=== PATIENT | female | born 1960 | race Caucasian/White ===

== ENCOUNTER → 2018-09-28 16:33 | Outpatient (CLI) | payer OTHER | END | disposition home or self-care (01) | LOC: D.MAMMO 11:30 | PROVIDERS: ATTEND Family Medicine | DX: Z12.31 Encounter for screening mammogram for malignant neoplasm of breast (principal) ==

== ENCOUNTER → 2019-09-22 10:15 | Outpatient (CLI) | payer OTHER | END | disposition home or self-care (01) | LOC: D.MAMMO 08-29 10:00 | PROVIDERS: ATTEND Clinical Nurse Specialist Family Health | DX: N63.22 Unspecified lump in the left breast, upper inner quadrant (principal) ==

== ENCOUNTER → 2019-10-02 08:22 | Outpatient (CLI) | payer OTHER | END | disposition home or self-care (01) | LOC: D.US 08:22 | PROVIDERS: ATTEND Clinical Nurse Specialist Family Health | DX: N63.22 Unspecified lump in the left breast, upper inner quadrant (principal) ==

== ENCOUNTER 2019-10-12 05:53 | Day surgery (SDC) | payer OTHER ==
[2019-10-09 12:42] LABS: BASOPHILS 0.4 % (0-2); EOSINOPHILS 0.9 % (0-7); HEMATOCRIT 41.6 % (36.0-48.0); IMMATURE GRANULOCYTES 0.2 % (0-5); LYMPHOCYTES 27.7 % (15-50); MCH 33.7 pg (26.0-34.0); MCHC 33.7 g/dL (31.0-37.0); MCV 100.2 fL (80.0-100.0); MEAN PLATELET VOLUME 9.5 fL (7.4-10.4); MONOCYTES 5.7 % (2-11); NEUTROPHILS 65.1 % (40-80); PLATELET COUNT 412 10x3/uL (130-400); RBC 4.15 10x6/uL (4.00-5.40); RDW 12.4 % (11.5-14.5); WBC 12.4 10x3/uL (4.8-10.8)
[2019-10-09 12:49] LABS: CALC OSMOLALITY 278 mosm/kg (275-300); CALCIUM 9.9 mg/dL (8.5-10.1); CHLORIDE - SERUM 99 mmol/L (98-107); CREATININE - SERUM 0.8 mg/dL (0.6-1.3); GLUCOSE 198 mg/dL (74-106); POTASSIUM - SERUM 3.9 mmol/L (3.5-5.1); SODIUM 136 mmol/L (136-145); UREA NITROGEN 15 mg/dL (7-18); eGFR NON AFRICAN AMERICAN 78 mL/min (90-120)
[~2019-10-12] VITALS: Ht 157.5 cm; Wt 77.1 kg
--- NOTE | ~2019-10-12 | OP ---
PATIENT NAME: VANGIE CONTRERAS MEDICAL RECORD: [id number] :62 LOCATION:D.OPS ADMISSION DATE: SURGEON: OSEI HELTON MD DATE OF OPERATION: 10/12/2019 PREOPERATIVE DIAGNOSES: 1. 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 2. Hypertension. 3. Diabetes mellitus. 4. Hypercholesterolemia. POSTOPERATIVE DIAGNOSES: 1. 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 2. Hypertension. 3. Diabetes mellitus. 4. Hypercholesterolemia. PROCEDURE: Left lumpectomy with left axillary lymph node excisional biopsy. SURGEON: Osei Helton MD REPORT OF PROCEDURE: Preoperatively, the patient underwent lymphoscintigraphy which did not show any uptake in the patient's axilla. The patient was then taken to the operating room and the breast and left axilla were prepped and draped in sterile fashion. I was not able to pick up operator much radiotracer activity in the patient's left axilla with the Neoprobe. I approached the breast and she had a large mass present centralized at the 12 o'clock position and extending medially and laterally. A semicircular incision was made on the superior aspect of the patient's nipple areolar complex. Electrocautery was used to dissect through the subcutaneous tissues. As we entered the breast, we came underneath the skin and subcutaneous tissues over top of this large mass. Once we got past the mass, then we took down any of the fatty tissue around the mass in order to get a grossly negative specimen. The mass was quite large and probably took up the top quarter of the patient's left breast. Once we had this mass excised, it was marked appropriately and sent off for permanent specimen. Anteriorly, if any more tissue need to be removed, the skin would actually have to be removed because there was hardly any tissue left. Posteriorly, we still had some room and had not approached the patient's pectoral fascia. I inspected the area and any bleeding that was found was treated with electrocautery. We then irrigated out that wound with sterile water. The subcutaneous tissues were reapproximated with interrupted 3-0 Vicryl and the skin was closed with running subcutaneous 5-0 Monocryl. We then approached the left axilla. An incision was made on the inferior aspect of the axilla and I was able to penetrate through the subcutaneous tissues and fascia into the axillary space using electrocautery. Once inside, I inspected again with the Neoprobe, but could find hardly any radiotracer uptake. I could feel grossly abnormal lymph nodes present. I was able to take out 4 large clumps of lymphoid tissue with surrounding fatty tissue. These were all taken off and sent for permanent specimen. There was minimal to any radiotracer uptake found in these lymph nodes. After taking these out, I felt around the axilla further and did not feel any evidence of any active lymphadenopathy. We then irrigated out this wound with sterile water and placed a 15-Z[place] round Leonard drain into the wound bed. This was sutured into place with 3-0 nylon. The subcutaneous tissues were reapproximated with interrupted 3-0 Vicryl and the skin was closed with running subcutaneous 5-0 Monocryl. OPERATIVE REPORT [id number] VANGIE CONTRERAS COMPLICATIONS: None. CONDITION: Stable. ANESTHESIA: General endotracheal. BLOOD LOSS: 30 mL. TRANSINT:[id number] Voice Confirmation ID: [id number] DOCUMENT ID: [id number] OSEI HELTON MD CC: ONEIL PATEL and JEANNETTE BRIDGES MD [id number] DICTATION DATE: 10/12/19 1244 SHADE HANGER: 10/12/19 1446 [facility] 10/12/[id number] [place] [address]
[~2019-10-12 05:53] MED LIST: ARMOUR THYROID30 MG PO; BAYER CHEWABLE81 MG PO; BYDUREON P2 MG/0.65 SC; FENOFIBRATE160 MG PO; GEMFIBROZIL600 MG PO; GLUCOPHAGE1000 MG PO; HYDROCHLOROTH12.5 M1 PO; LISINOPRIL2.5 MG PO; PROMETRIUM200 MG PO; PROTONIX40 MG PO; VITAMIN B-122500 MCG PO; vitamin d PO
[2019-10-12 06:29] VITALS: BP 114/66; Ht 157.5 cm; Wt 77.1 kg
[2019-10-12] MEDS ORDERED: HYDROCODON-ACE1 EA10 PO (12:48)
--- NOTE | 2019-10-12 13:49 | NUR ---
1340-FULL LIQUID TRAY TO ROOM. VSS. DRESSING CDI. JUJU DRAIN INTACT AT SUCTION,DRAINING RED BLOOD.REPORTS DISCOMFORT 2/10 TO LEFT BREAST
--- NOTE | 2019-10-12 14:36 | NUR ---
1415-TOLERATED TRAY. VSS. JUJU DRAIN AT SUCTION DRAINING RED BLOOD. AMBULATED TO RESTROOM WITH SLOW STEADY GAIT,ABLE TO VOID WITHOUT COMPLICATIONS. DRESSING CDI.
--- NOTE | 2019-10-12 14:37 | NUR ---
1620-REMOVED IV WITH CATH INTACT,DISPOSED INTO SHARPS,COVERED WITH GUAZE,SECURED WITH MEDIPORE TAPE. REVIEWED POST OPERATIVE INSTRUCTIONS,DRAIN CARE, AND TO CONTACT 'S OFFICE TO SCHEDULE 1-2 WK FOLLOW UP. UNABLE TO REACH ANYONE AT THIS TIME TO SCHEDULE FOR PT. VERBALIZED UNDERSTANDING. WILL BE HERE AT 1430 TO TRANSPORT HOME
--- NOTE | 2019-10-12 14:40 | NUR ---
1430-ESCORTED OUT VIA W/C WITH SPOUSE AWAITING TO DRIVE HOME
== END 2019-10-12 14:30 | disposition home or self-care (01) ==
LOC: D.OPS 05:53 → D.PAN 08:00 → D.NM 08:00 → D.OPS 08:00
PROVIDERS: ATTEND Surgery
DX: C50.812 Malignant neoplasm of overlapping sites of left female breast (principal); I10 Essential (primary) hypertension; E11.9 Type 2 diabetes mellitus without complications; E78.00 Pure hypercholesterolemia, unspecified; Z79.84 Long term (current) use of oral hypoglycemic drugs; Z72.0 Tobacco use

== ENCOUNTER → 2019-11-03 08:00 | Outpatient (CLI) | payer OTHER ==
[~2019-11-03 08:00] MED LIST changes: +HYDROCODON-ACE1 EA10 PO; +HYDROCODON-ACE1 EAC7 PO
[2019-11-07 08:12] VITALS: BMI 31.1
== END | disposition home or self-care (01) ==
LOC: D.OPS 08:00
PROVIDERS: ATTEND Surgery
DX: C50.012 Malignant neoplasm of nipple and areola, left female breast (principal); Z17.0 Estrogen receptor positive status [ER+]; E11.69 Type 2 diabetes mellitus with other specified complication; K21.9 Gastro-esophageal reflux disease without esophagitis; I10 Essential (primary) hypertension; E78.5 Hyperlipidemia, unspecified

== ENCOUNTER 2019-11-07 07:03 | Day surgery (SDC) | payer OTHER ==
[2019-11-03 09:00] LABS: BASOPHILS 0.3 % (0-2); EOSINOPHILS 1.5 % (0-7); HEMOGLOBIN 12.9 g/dL (12-16); IMMATURE GRANULOCYTES 0.4 % (0-5); LYMPHOCYTES 30.4 % (15-50); MCH 35.4 pg (26.0-34.0); MCHC 34.9 g/dL (31.0-37.0); MCV 101.6 fL (80.0-100.0); MEAN PLATELET VOLUME 9.1 fL (7.4-10.4); MONOCYTES 8.1 % (2-11); NEUTROPHILS 59.3 % (40-80); PLATELET COUNT 410 10x3/uL (130-400); RBC 3.64 10x6/uL (4.00-5.40); RDW 12.8 % (11.5-14.5); WBC 7.8 10x3/uL (4.8-10.8)
[2019-11-03 09:15] LABS: APTT 25.4 SECONDS (22.8-39.4); INR 0.96 (0.85-1.17); PROTIME 12.8 SECONDS (11.6-15.0)
[2019-11-03 09:23] LABS: CALC OSMOLALITY 285 mosm/kg (275-300); CALCIUM 9.7 mg/dL (8.5-10.1); CHLORIDE - SERUM 100 mmol/L (98-107); CREATININE - SERUM 0.8 mg/dL (0.6-1.3); POTASSIUM - SERUM 4.2 mmol/L (3.5-5.1); SODIUM 136 mmol/L (136-145); UREA NITROGEN 18 mg/dL (7-18); eGFR NON AFRICAN AMERICAN 78 mL/min (90-120)
[2019-11-03 09:24] LABS: GLUCOSE 317 mg/dL (74-106)
[~2019-11-07] VITALS: Ht 157.5 cm; Wt 77.1 kg
--- NOTE | ~2019-11-07 | OP ---
PATIENT NAME: VANGIE CONTRERAS MEDICAL RECORD: [id number] :62 LOCATION:D.OPS ADMISSION DATE: SURGEON: OSEI HELTON MD DATE OF OPERATION: 11/07/2019 PREOPERATIVE DIAGNOSES: 1. Metastatic left breast cancer. 2. Hypertension. 3. Diabetes mellitus. 4. Hypercholesterolemia. POSTOPERATIVE DIAGNOSES: 1. Metastatic left breast cancer. 2. Hypertension. 3. Diabetes mellitus. 4. Hypercholesterolemia. PROCEDURE: Right subclavian vein PowerPort placement. SURGEON: Osei Helton MD REPORT OF PROCEDURE: The patient's right chest was prepped and draped in sterile fashion. A needle was used to cannulate the right subclavian vein and a guidewire was advanced with ease. Fluoro was used to note that the wire was in good position in the venous system. A skin incision was made on the right superolateral chest and a subcutaneous pouch was made over the pectoral fascia. The catheter was tunneled between this pouch and the wire exit site. The port was then sutured to the pectoral fascia with an interrupted 2-0 Prolene times 2. The catheter was then cut with a beveled tip. The dilator trocar device was placed over the wire, and the wire and dilator were removed. The catheter tip was advanced through the trocar until it rested in good position at the right atrial superior vena caval junction. The catheter aspirated nonpulsatile dark blood and flushed easily with heparinized saline. The subcutaneous tissues were reapproximated with interrupted 3-0 Vicryl and the skin was closed with running subcutaneous 5-0 Monocryl. COMPLICATIONS: None. CONDITION: Stable. ANESTHESIA: General endotracheal. BLOOD LOSS: Minimal. TRANSINT:[id number] Voice Confirmation ID: [id number] DOCUMENT ID: [id number] OSEI HELTON MD CC: RORO NOLASCO and JEANNETTE BRIDGES MD [id number] DICTATION DATE: 11/07/19 1039 SHRIMPING BOAT CAPTAIN: 11/07/19 1208 [facility] [address] [id number]
[~2019-11-07 07:03] MED LIST changes: -HYDROCODON-ACE1 EAC7 PO
[2019-11-07 08:12] VITALS: Ht 157.5 cm; Wt 77.1 kg
--- NOTE | 2019-11-07 08:58 | NUR ---
0852 [facility] 222. Checo FIGUEREDO R.N./OR NOTIFIED. PT TO OR HOLDING. Norberto MENDOZA R.N.
[2019-11-07] MEDS ORDERED: HYDROCODON-ACE1 EAC7 PO (10:36)
== END 2019-11-07 12:26 | disposition home or self-care (01) ==
LOC: D.OPS 07:03 → D.NM 08:30 → D.OPS 09:15
PROVIDERS: Anesthesiology; ATTEND Surgery
DX: C50.912 Malignant neoplasm of unspecified site of left female breast (principal); I10 Essential (primary) hypertension; E11.9 Type 2 diabetes mellitus without complications; E78.00 Pure hypercholesterolemia, unspecified; Z79.84 Long term (current) use of oral hypoglycemic drugs; Z72.0 Tobacco use

== ENCOUNTER → 2019-12-07 11:59 | Outpatient (CLI) | payer OTHER ==
[2019-11-07 08:12] VITALS: BMI 31.1
[~2019-12-07 11:59] MED LIST changes: +HYDROCODON-ACE1 EAC7 PO
== END | disposition home or self-care (01) ==
LOC: D.US 11:30
PROVIDERS: ATTEND Internal Medicine Hematology & Oncology
DX: I82.622 Acute embolism and thrombosis of deep veins of left upper extremity (principal); E11.9 Type 2 diabetes mellitus without complications; K21.9 Gastro-esophageal reflux disease without esophagitis; E78.5 Hyperlipidemia, unspecified; I10 Essential (primary) hypertension; Z72.0 Tobacco use; Z79.84 Long term (current) use of oral hypoglycemic drugs

== ENCOUNTER 2020-02-29 06:33 | Day surgery (SDC) | payer OTHER ==
[~2020-02-29] VITALS: Ht 157.5 cm; Wt 73.9 kg
--- NOTE | ~2020-02-29 | OP ---
PATIENT NAME: VANGIE CONTRERAS MEDICAL RECORD: [id number] :62 LOCATION:[facility].1222 ADMISSION DATE: SURGEON: OSEI HELTON MD DATE OF OPERATION: 02/29/2020 PREOPERATIVE DIAGNOSES: 1. Left breast cancer. 2. Invasive lobular carcinoma with lobular carcinoma in situ. 3. Hypertension. 4. Diabetes mellitus. 5. Hypercholesterolemia. POSTOPERATIVE DIAGNOSES: 1. Left breast cancer. 2. Invasive lobular carcinoma with lobular carcinoma in situ. 3. Hypertension. 4. Diabetes mellitus. 5. Hypercholesterolemia. PROCEDURE: Bilateral simple mastectomy. SURGEON: Osei Helton MD REPORT OF PROCEDURE: The patient's bilateral chest were prepped and draped in sterile fashion. The left breast was approached first. An ovoid incision was made around the patient's nipple areolar complex. Electrocautery was used to dissect through the subcutaneous tissues. We came under the subcutaneous tissues over the breast tissue and dissected out the breast tissue in all directions. This was done medially towards the sternum, superiorly towards the clavicle, laterally towards the axilla and inferiorly towards the rectus musculature. Once we had the breast completely encircled, then it was dissected off of the pectoralis muscle using electrocautery. Once we had the breast completely excised, then it was marked appropriately and sent off for permanent specimen. We inspected the area and any bleeding sources that were found were treated with either 3-0 silk ties or with electrocautery. We then approached the right breast. An ovoid incision was made around the patient's nipple areolar complex. Electrocautery was used to dissect through the subcutaneous tissue. We were able to dissect out the right breast in similar fashion to the left side using electrocautery. We were able to dissect medially towards the sternum, inferiorly towards the rectus musculature and laterally towards the axilla. Superiorly, we went towards the clavicle and at one point we encountered the patient's indwelling subclavian port. We left the tissues around the port and dissected around this leaving it intact. Once this breast was taken off of the pectoralis muscle, then it was marked appropriately and sent off for permanent specimen. We irrigated out both wounds with sterile water. A 10 flat JUJU drains times 2 were placed in the bilateral sides and all four of these were sutured into place with 3-0 nylons. We reapproximated the subcutaneous tissues using multiple interrupted 3-0 Vicryls and the skin incisions were closed with whitley. COMPLICATIONS: None. CONDITION: Stable. ANESTHESIA: General endotracheal. OPERATIVE REPORT [id number] VANGIE CONTRERAS BLOOD LOSS: 100 mL. TRANSINT:[id number] Voice Confirmation ID: [id number] DOCUMENT ID: [id number] OSEI HELTON MD CC: RORO NOLASCO and JEANNETTE BRIDGES MD [id number] DICTATION DATE: 02/29/20 1237 VIDEOTAPE EDITOR: 02/29/20 1642 [facility] [address] [id number]
[~2020-02-29 06:33] MED LIST changes: +CLOBETASOL PROP15 GM; +MUPIROCIN22 GM
[2020-02-29 07:03] LABS: BASOPHILS 0.4 % (0-2); EOSINOPHILS 3.6 % (0-7); HEMATOCRIT 36.8 % (36.0-48.0); HEMOGLOBIN 12.9 g/dL (12-16); IMMATURE GRANULOCYTES 0.3 % (0-5); LYMPHOCYTES 20.9 % (15-50); MCH 36.4 pg (26.0-34.0); MCHC 35.1 g/dL (31.0-37.0); MEAN PLATELET VOLUME 9.6 fL (7.4-10.4); MONOCYTES 5.1 % (2-11); NEUTROPHILS 69.7 % (40-80); RBC 3.54 10x6/uL (4.00-5.40)
[2020-02-29 07:07] LABS: APTT 23.7 SECONDS (22.8-39.4); INR 0.92 (0.85-1.17); PROTIME 12.3 SECONDS (11.6-15.0)
[2020-02-29 07:13] LABS: PLATELET COUNT 297 10x3/uL (130-400)
[2020-02-29 07:16] LABS: CALC OSMOLALITY 285 mosm/kg (275-300); CALCIUM 8.5 mg/dL (8.5-10.1); CARBON DIOXIDE 17.7 mmol/L (21.0-32.0); CHLORIDE - SERUM 96 mmol/L (98-107); CREATININE - SERUM 0.7 mg/dL (0.6-1.3); POTASSIUM - SERUM 3.9 mmol/L (3.5-5.1); SODIUM 131 mmol/L (136-145); UREA NITROGEN 14 mg/dL (7-18); eGFR NON AFRICAN AMERICAN > 90 mL/min (90-120)
[2020-02-29 07:20] LABS: GLUCOSE 486 mg/dL (74-106)
--- NOTE | 2020-02-29 07:35 | NUR ---
BLOOD GLUCOSE 486, NEW ORDERS RECEIVED
[2020-02-29 07:58] VITALS: BMI 31.7
--- NOTE | 2020-02-29 13:44 | NUR ---
1330 NO BEDS AVAILABLE TO ADMIT. RECEIVED IN STABLE CONDITION FROM PACU. PT IS DROWSY BUT RESPONSIVE. STATES SHE IS SORE BUT NOT IN A GREAT DEAL OF PAIN. REMAINS ON 4L VIA NC WITH SAT 95%. CHEST IS WRAPPED WITH A CDI KAVYA WRAP AND 2 JUJU'S ARE PRESENT BILATERALLY. SAINGUINOUS DRAINAGE PRESENT. R AC PIV PRESENT, AND PATENT.
--- NOTE | 2020-02-29 15:25 | NUR ---
RATES PAIN AT 8/10. MEDS GIVEN SCANNED TO EMAR. ALSO PROVIDED WITH LARGE ICE WATER. NO OTHER NEEDS AT THIS TIME. SIDE RAILS UP X 2 WITH CALL LIGHT IN REACH.
--- NOTE | 2020-02-29 19:00 | NUR ---
ALERT AND ORIENTED. VSS. PATIENT ASSESSMENT PERFORMED. DRAINS EMPTIED AND RECOMPRESSED. PATIENT DENIES PAIN AT THIS TIME. CALL LIGHT CLOSE. CPOC.
[2020-02-29 20:00] VITALS: BP 100/63
--- NOTE | 2020-02-29 21:10 | NUR ---
REQUESTING PAIN MEDICINE. ADMINISTERED PER ORDER. PATIENT TOLERATED WELL. CPOC.
[2020-02-29 23:52] VITALS: BP 100/63; Ht 157.5 cm; Wt 73.9 kg
[2020-03-01] VITALS: BP 69/59; BP 96/59
--- NOTE | 2020-03-01 00:15 | NUR ---
PATIENT VITALS ASSESSED. O2 SATURATION LOW. APPLIED 2L, INCENTIVE SPIROMETER WITH DEMONSTRATION AND EDUCATION. ENCOURAGE COUGHING AND DEEP BREATHING. SATURATION IMPROVED TO 93%. CPOC.
[2020-03-01 04:00] VITALS: BP 114/71
[2020-03-01 05:18] LABS: BASOPHILS 0.2 % (0-2); EOSINOPHILS 1.6 % (0-7); HEMATOCRIT 33.1 % (36.0-48.0); HEMOGLOBIN 10.7 g/dL (12-16); IMMATURE GRANULOCYTES 0.2 % (0-5); LYMPHOCYTES 14.1 % (15-50); MCH 34.4 pg (26.0-34.0); MCHC 32.3 g/dL (31.0-37.0); MEAN PLATELET VOLUME 9.5 fL (7.4-10.4); MONOCYTES 5.9 % (2-11); PLATELET COUNT 262 10x3/uL (130-400); RBC 3.11 10x6/uL (4.00-5.40); RDW 13.5 % (11.5-14.5)
[2020-03-01 05:29] LABS: MCV 106.4 fL (80.0-100.0); WBC 9.9 10x3/uL (4.8-10.8)
[2020-03-01 08:51] VITALS: BP 117/68
[2020-03-01] MEDS ORDERED: HYDROCODON-ACE1 EAC7 PO (11:03)
--- NOTE | 2020-03-01 12:15 | NUR ---
PATIENT IN BED. DENIES PAIN OR NEEDS. FREE FROM SIGNS OF DISTRESS. WILL CONTINUE TO MONITOR.
--- NOTE | 2020-03-01 12:47 | NUR ---
DISCHARGED PATIENT HOME WITH SPOUSE VIA WHEELCHAIR. DISCONTINUED IV CATHETER TIP INTACT. INSTRUCTED PATIENT AND DEMONSTRATED HOW TO EMPTY JUJU DRAINS AND RECORD THE AMOUNT, PATIENT DEMONSTRATED AND VERBALIZED UNDERSTANDING OF DISCHARGE INSTRUCTIONS. DENIES ANYTHING FURTHER.
== END 2020-03-01 12:49 | disposition home or self-care (01) ==
LOC: D.OPS 06:33 → D.PAN 08:00 → D.OPS 08:00 → D.PAN 09:00 → D.WS 14:49 → D.MS 18:45 → D.OPS 03-01 12:49
PROVIDERS: Anesthesiology; ATTEND Surgery
DX: C50.912 Malignant neoplasm of unspecified site of left female breast (principal); I10 Essential (primary) hypertension; E11.9 Type 2 diabetes mellitus without complications; E78.00 Pure hypercholesterolemia, unspecified; F17.200 Nicotine dependence, unspecified, uncomplicated

== ENCOUNTER → 2020-03-18 19:49 | Outpatient (CLI) | payer OTHER ==
[2020-02-29 23:52] VITALS: BMI 29.8
== END | disposition home or self-care (01) ==
LOC: D.LABREF 19:49
PROVIDERS: ATTEND Surgery
DX: T81.41XD Infection following a procedure, superficial incisional surgical site, subsequent encounter (principal)

== ENCOUNTER → 2020-09-11 10:07 | Outpatient (CLI) | payer OTHER ==
[2020-04-18 11:04] VITALS: BMI 29.2
[~2020-09-11 10:07] MED LIST changes: +LEVAQUIN750 MG PO; +PREDNISONE20 MG PO; +VIBRAMYCIN50 MG PO
== END | disposition home or self-care (01) ==
LOC: D.CT 10:07
PROVIDERS: ATTEND Internal Medicine Hematology & Oncology
DX: C50.012 Malignant neoplasm of nipple and areola, left female breast (principal)